=== PATIENT | female | born 1970 | race Caucasian/White ===

== ENCOUNTER 2022-01-16 14:00 | Emergency (ER) | payer BC ==
[2022-01-16 15:07] LABS: HEMOGLOBIN 16.4 gm/dl (12.3-15.3); RED BLOOD COUNT 5.5 M/UL (4.00-5.10)
[2022-01-16 15:39] LABS: WHITE BLOOD COUNT 13.3 K/UL (4.5-11.0)
[2022-01-16 17:19] LABS: BUN/CREATININE RATIO 10 (0-10)
[2022-01-17 08:14] LABS: HBSAG SCREEN Negative (Negative); HCV AB <0.1 (0.0-0.9); HEP A AB, IGM Negative (Negative); HEP B CORE AB, IGM Negative (Negative)
[2022-01-18 16:14] LABS: CMV QUANT DNA PCR (PLASMA) Negative (Negative)
== END 2022-01-16 19:27 | disposition home or self-care (01) ==
LOC: ER1 14:00
PROVIDERS: Emergency Medicine; Physician Assistant Medical
DX: R10.11 Right upper quadrant pain (principal); R79.9 Abnormal finding of blood chemistry, unspecified; R10.811 Right upper quadrant abdominal tenderness; R11.2 Nausea with vomiting, unspecified
CPT/HCPCS: 71045; 80053; 80074; 81001; 83605; 83690; 85025; 85610; 87040; 87497; 96374; 96375; 99284; J0696; J2405